=== PATIENT | male | born 1960 | race Caucasian/White ===

== ENCOUNTER 2022-04-04 06:22 | Day surgery (SDC) | payer BC, OTHER ==
[~2022-04-04 06:22] MED LIST: Lactated Ringers 1,000 ML IV SCH; Sodium Chloride 0.9% 10 ML Syringe FLUSH PRN
[2022-04-04] MEDS ORDERED: Propofol 200 MG/20 ML SDV IV ONE (06:23)
[2022-04-04] MEDS ORDERED: Midazolam 1 MG/ML 2 ML SDV IV ONE (06:23)
[2022-04-04 08:44] VITALS: BP 137/84; PULSE 67
== END 2022-04-04 08:50 | disposition home or self-care (01) ==
LOC: FB.SDS 06:22
PROVIDERS: ATTEND Surgery
DX: Z12.11 Encounter for screening for malignant neoplasm of colon (principal); D12.8 Benign neoplasm of rectum; K57.30 Diverticulosis of large intestine without perforation or abscess without bleeding; K56.2 Volvulus; G47.33 Obstructive sleep apnea (adult) (pediatric); I10 Essential (primary) hypertension; E11.65 Type 2 diabetes mellitus with hyperglycemia; K21.9 Gastro-esophageal reflux disease without esophagitis; Z98.890 Other specified postprocedural states; Z79.899 Other long term (current) drug therapy; Z79.84 Long term (current) use of oral hypoglycemic drugs
CPT/HCPCS: 00812-QZ; 82947; 88305; J2250; J2704; J7120

== ENCOUNTER 2025-06-08 20:26 | Emergency (ER) | payer OTHER ==
[2025-06-08] MEDS: Sodium Chloride 0.9% 10 ML Syringe FLUSH PRN (21:13)
[2025-06-08 22:20] VITALS: BP 160/87; PULSE 96
== END 2025-06-08 22:40 | disposition other institution (70) ==
LOC: FB.ED 20:26
DX: T18.128A Food in esophagus causing other injury, initial encounter (principal); E11.9 Type 2 diabetes mellitus without complications; E66.9 Obesity, unspecified; K21.9 Gastro-esophageal reflux disease without esophagitis; Z79.84 Long term (current) use of oral hypoglycemic drugs; Z79.899 Other long term (current) drug therapy; Z88.0 Allergy status to penicillin; Z68.33 Body mass index [BMI] 33.0-33.9, adult
CPT/HCPCS: 96374; 99285; J1610; 99284